=== PATIENT | female | born 1945 | race Caucasian/White ===

== ENCOUNTER → 2016-06-05 | Outpatient (CLI) | payer OTHER ==
[~2016-06-05] MED LIST: ASCO1CAP3 PO; CHOL1000 PO; FMR25 PO; GLUC10007 PO; HYDR-5688 PO; IBUP-1050 PO; OXYC1TAB3 PO; POTA10CA28 PO; POTA8CAP6 PO; SILV1CRE73 TOP; VITACAP26 PO
[2016-06-05 12:06] LABS: BASO % 0.6 %; BASO ABS # 0.04 K/uL (0-0.2); COMPLETE YES; EOS % 1.9 %; HEMATOCRIT 39.5 % (37-47); IG% 0.1 %; LYMPH % 28.2 %; LYMPH ABS # 1.96 K/uL (1.2-3.4); MEAN CELL VOLUME 89.2 fL (80-100); MEAN CORPUSCULAR HGB CONC 33.7 g/dl (32-36); MEAN PLATELET VOLUME 12.2 fL (7.4-10.4); MONO % 4.5 %; NEUT % 64.7 %; PLATELET COUNT 234 K/uL (130-400); RED BLOOD COUNT 4.43 M/uL (4.2-5.4); WHITE BLOOD COUNT 6.95 K/uL (4.8-10.8)
[2016-06-05 12:40] LABS: ALT/SGPT 18 U/L (12-78); BLOOD UREA NITROGEN 13 mg/dl (7-18); BUN/CREATININE RATIO 15.9 (10-20); CALCIUM 9.2 mg/dl (8.5-10.1); CARBON DIOXIDE 26 mmol/L (21-32); CHLORIDE 104 mmol/L (98-107); CREATININE 0.81 mg/dl (0.60-1.20); GLUCOSE 138 mg/dl (70-99); SODIUM 140 mmol/L (136-145)
[2016-06-05 12:43] LABS: ALB/GLOB RATIO 0.7 (0.9-2); ALKALINE PHOSPHATASE 138 U/L (45-117); AST/SGOT 16 U/L (15-37)
== END | disposition home or self-care (01) ==
LOC: C.LAB 09:52
PROVIDERS: ATTEND Internal Medicine Hematology & Oncology
DX: C50.919 Malignant neoplasm of unspecified site of unspecified female breast (principal)

== ENCOUNTER → 2016-08-17 | Outpatient (CLI) | payer OTHER ==
[~2016-08-17] MED LIST changes: -HYDR-5688 PO
--- NOTE | 2016-08-17 18:06 | DIAGNOSTIC IMAGING REPORT ---
LEFT SHOULDER 3 VIEWS HISTORY: M25.512 Pain in joint of left [id number] COMPARISON: Radiation therapy CT 06/22/2016. FINDINGS: There is a large permeative/destructive lesion at the proximal shaft of the left humerus. This measures 6.2 cm. This results in near-complete this obstruction of the medial cortex of the proximal humerus. No dislocation. This is similar to the prior study. Calcified granuloma within the left lung. IMPRESSION: No change in the large permeative/destructive lesion at the proximal shaft of left humerus. There is no acute fracture at this time. However, findings are consistent with an impending pathologic fracture. Electronically signed by: Camron Peraza M.D. 08/17/2016 6:04 PM Dictated Date/Time: 08/17/2016 6:02 PM
== END | disposition home or self-care (01) ==
LOC: C.RAD 17:36
PROVIDERS: ATTEND Internal Medicine
DX: M25.512 Pain in left shoulder (principal); M85.822 Other specified disorders of bone density and structure, left upper arm

== ENCOUNTER → 2016-08-23 | Outpatient (CLI) | payer OTHER ==
[~2016-08-23] MED LIST changes: +OPTIRAY 320 IV PRN
--- NOTE | 2016-08-23 13:44 | DIAGNOSTIC IMAGING REPORT ---
CT SCAN OF THE CHEST, ABDOMEN, AND PELVIS WITH IV CONTRAST CLINICAL HISTORY: Breast cancer. COMPARISON STUDY: No priors. TECHNIQUE: Following the IV administration of 118 of Optiray 320, CT scan of the chest, abdomen, and pelvis was performed from the thoracic inlet to the proximal femora. Images are reviewed in the axial, sagittal, and coronal planes. IV contrast was administered without complication. Automated dose control exposure was utilized. The Examination is degraded by streak artifact from the left arm which could not be elevated above the chest or abdomen. CT DOSE: 1582.14 mGy.cm FINDINGS: CHEST: Thyroid: Imaged portions of the thyroid gland are normal in size and attenuation. Thoracic aorta: There is mild atherosclerotic calcification of the thoracic aorta, which is normal in caliber and demonstrates standard 3-vessel arch anatomy. No dissection is seen. Pulmonary vasculature: The pulmonary trunk is normal in caliber. There are no filling defects identified in the central pulmonary vessels to indicate pulmonary was. Note that this examination was not protocoled for evaluation of the pulmonary arteries. Heart: The heart is normal in size and configuration, and without pericardial effusion. There are coronary artery calcifications. Lungs and pleural spaces: There is no airspace consolidation or pleural effusion. The trachea and central airways are clear. There are numerous calcified granulomas. There is a 10 mm linear nodular density at the left lung base seen on image #214. A 5 mm pleural-based nodule is seen along the left major fissure and adjacent to the descending thoracic aorta on image #108. Mediastinum: There is no mediastinal lymphadenopathy. Holly: Clear. Axillae: There is no axillary lymphadenopathy. Bony thorax: The skeletal structures are osteopenic. There is a large permeative/osteolytic lesion is seen in the left proximal humeral shaft on image #95 consistent with metastatic disease. A lytic lesion is seen within the left lamina and the base of the spinous process of T1 on image #22. Soft tissues: There are postoperative changes from bilateral mastectomy. There is dermal thickening with subcutaneous infiltration identified along the right ventral chest wall. ABDOMEN AND PELVIS: Liver: The contrast-enhanced liver is top normal in size measuring 18 cm in length. The liver demonstrates diffusely diminished attenuation consistent with hepatic steatosis. There are scattered calcified hepatic granulomas. There is mild central intrahepatic or ductal dilatation. The hepatic veins and portal veins are patent. Gallbladder: Surgically absent. Spleen: Normal in size and attenuation. There are numerous calcified splenic granulomas. Pancreas: Atrophic and grossly unremarkable. Adrenal glands: Unremarkable. Kidneys: The contrast enhanced kidneys demonstrate cortical atrophy and are without hydronephrosis. The kidneys enhance symmetrically. Scattered subcentimeter cortical hypodensities likely represent cysts but are too small for definitive characterization. Abdominal vasculature: The abdominal aorta is normal in course and caliber noting mild to moderate atherosclerotic calcification. Stomach and bowel: There is a tiny hiatal hernia. The stomach and duodenum otherwise normal in configuration. The small bowel and colon are normal in course and caliber. There is mild sigmoid diverticulosis without CT evidence of acute diverticulitis. The appendix is not identified and reported surgically absent. Peritoneum: There is no intraperitoneal free air or abdominal ascites. There is a small fat-containing umbilical hernia. Lymphadenopathy: None. Pelvic viscera: The bladder, uterus, and adnexa are normal as imaged. Findings suggest pelvic floor prolapse. Skeletal structures: The skeletal structures are osteopenic. A large lytic lesion is present within the medial right iliac wing adjacent to the sacroiliac joint on image #309. This lesion measures up to 2.6 cm. IMPRESSION: 1. There are postoperative changes from bilateral mastectomy. 2. Dermal thickening and inflammatory stranding within the right ventral chest wall is likely related to radiation treatment. Clinical correlation will be required. 3. There is evidence of multifocal osteolytic metastatic disease. Large lesions are seen within the left proximal humerus, the posterior element of T1, and the right ilium. Note that the left humeral lesion may place the patient at risk for pathologic fracture. 4. There are 2 indeterminant pulmonary nodules in the left lung measuring 10 mm and 5 mm. Metastatic disease is not excluded. Attention at follow-up is recommended. 5. There is no axillary or internal mammary lymphadenopathy. 6. There is no airspace consolidation or pleural effusion. 7. Hepatic steatosis. 8. Findings suggest pelvic floor prolapse. 9. Additional changes as above. Electronically signed by: Rolly Clinton M.D. 08/23/2016 1:43 PM Dictated Date/Time: 08/23/2016 1:29 PM
== END | disposition home or self-care (01) ==
LOC: C.NUCL 12:18
PROVIDERS: ATTEND Physician Assistant Medical
DX: C50.111 Malignant neoplasm of central portion of right female breast (principal); M79.602 Pain in left arm; M84.42 Pathological fracture, humerus; K76.0 Fatty (change of) liver, not elsewhere classified; R91.8 Other nonspecific abnormal finding of lung field; Z90.13 Acquired absence of bilateral breasts and nipples

== ENCOUNTER → 2016-08-23 | Outpatient (CLI) | payer OTHER ==
[~2016-08-23] MED LIST changes: -OPTIRAY 320 IV PRN
--- NOTE | 2016-08-23 15:48 | DIAGNOSTIC IMAGING REPORT ---
BONE SCAN WHOLE BODY CLINICAL HISTORY: Breast carcinoma COMPARISON STUDY: Chest CT dated 08/23/2016 FINDINGS: The patient was injected with 27 mCi of technetium 99m MDP. Three-hour delayed whole body images were acquired. There is intense focus of increased activity involving the proximal left humeral shaft. This corresponds to the lytic lesion described on the recent chest CT. There is a focus of increased activity involving the thoracic spine at the T1 level. This corresponds to the lytic lesion described on the recent chest CT. There is a focus of increased activity involving the left fifth rib posteriorly. This corresponds to a lytic lesion visualized on the recent CT scan. There is a focus of increased activity involving the right medial iliac bone. This corresponds to a destructive lesion as visualized on the recent CT scan of the abdomen and pelvis. There is a subtle focus of increased activity within the lumbar spine at the L1-2 level. This is felt to be degenerative.. IMPRESSION: Foci of abnormal increased activity involving the left proximal humerus, right medial iliac bone, left fifth rib, and T1 vertebra. The findings are consistent with metastatic disease. Electronically signed by: Anton Mclaughlin M.D. 08/23/2016 3:47 PM Dictated Date/Time: 08/23/2016 3:41 PM
== END | disposition home or self-care (01) ==
LOC: C.NUCL 12:21
PROVIDERS: ATTEND Orthopaedic Surgery
DX: M84.42 Pathological fracture, humerus (principal)

== ENCOUNTER → 2016-12-13 | Outpatient (CLI) | payer OTHER ==
[~2016-12-13] MED LIST changes: +OPTIRAY 320 IV PRN; -POTA8CAP6 PO; -SILV1CRE73 TOP; -VITACAP26 PO
--- NOTE | 2016-12-13 15:47 | DIAGNOSTIC IMAGING REPORT ---
ABD/PELVIS IV AND ORAL CONT CT DOSE: HISTORY: Breast carcinoma. Metastatic disease. BREAST CA TECHNIQUE: Multiaxial CT images of the abdomen and pelvis were performed following the use of intravenous and oral contrast. COMPARISON STUDY: 08/23/2016 FINDINGS: Lung bases are considered clear. Several calcific granulomas are present. Postoperative changes to the anterior chest wall bilaterally stable from the prior exam. Diffuse fatty infiltration of liver unchanged. Fatty replacement of the pancreas unaltered. The adrenal glands are within normal limits. Kidneys negative for hydronephrosis. Bowel pattern within the abdomen and pelvis is nonobstructive. Bladder is midline. Findings of diffuse bony metastatic change have not progressed. There is a slight degree of sclerosis of the right iliac region which may indicate partial healing. IMPRESSION: 1. Stable to slightly improved exam. 2. Bony metastatic change showing partial interval sclerosis and/or healing at the level of the right medial iliac bone 3. Fatty infiltration of liver stable The above report was generated using voice recognition software. It may contain grammatical, syntax or spelling errors. Electronically signed by: Elan Sanders M.D. 12/13/2016 3:45 PM Dictated Date/Time: 12/13/2016 3:40 PM
--- NOTE | 2016-12-13 15:47 | DIAGNOSTIC IMAGING REPORT ---
CT OF THE CHEST WITH IV CONTRAST CLINICAL HISTORY: BREAST CA COMPARISON STUDY: 08/23/2016 TECHNIQUE: Following the IV administration of 93 mL of Optiray-320, CT of the thorax was performed from the thoracic inlet to the lung bases. Images are reviewed in the axial, sagittal, and coronal planes. IV contrast was administered without complication. CT DOSE: 1894.58 mGy.cm FINDINGS: Thyroid: There is a 4 mm left lobe thyroid nodule Thoracic aorta: The thoracic aorta is normal in course and caliber, noting standard 3-vessel arch anatomy. No aneurysm or dissection is seen. Pulmonary vasculature: The pulmonary trunk is normal in caliber. There are no central filling defects identified to suggest pulmonary embolus. Note that this examination was not protocoled for the evaluation of pulmonary emboli. HEART: There are coronary artery calcifications present Lungs and pleural spaces: There are no pleural effusions. There is no focal pulmonary consolidation. There multiple left lung calcified granulomas. There is a stable 3 mm right upper lobe perifissural nodule. There is a stable 5 mm pulmonary nodule within the superior segment left lower lobe adjacent to the descending thoracic aorta. There is an 8 mm elliptical left lower lobe pulmonary nodule which appears slightly smaller than on the prior study. Mediastinum: There is no evidence of pathologic adenopathy. Holly: There are calcified left hilar lymph nodes. There is no pathologic adenopathy. Axilla: There is no evidence of pathologic adenopathy Upper abdomen: There is severe hepatic steatosis. Skeletal structures: There are postsurgical changes involving the left humerus. Destructive changes involve the proximal left humeral metaphysis. There is a posterior T1 destructive lesion, similar to the prior study. There are postsurgical changes of bilateral mastectomies. Right-sided skin thickening and infiltration of the subcutaneous fat is likely secondary to prior radiation therapy. IMPRESSION: 1. No evidence of pathologic adenopathy 2. No new or enlarging pulmonary nodules 3. Stable skeletal metastasis Electronically signed by: Anton Mclaughlin M.D. 12/13/2016 3:45 PM Dictated Date/Time: 12/13/2016 3:38 PM
--- NOTE | 2016-12-13 18:16 | DIAGNOSTIC IMAGING REPORT ---
BONE SCAN WHOLE BODY HISTORY: Breast carcinoma BREAST CA RADIOTRACER: 27 mCi Tc-99m MDP STUDY/IMAGES: Planar anterior and posterior whole body imaging was performed 3 hours following the intravenous administration of radiotracer. COMPARISON: 08/23/2016 FINDINGS: Increased intensity of activity of the left humerus. Increase in activity right iliac bone. Small focus of increased activity adjacent to the lesser trochanter right hip. Small stable focus of increased activity mid sternum. Increased activity of the low cervical region. Stable focus of increased activity left fifth rib. Potential new small focus of increased activity left 10th rib midaxillary line. Mild stable degenerative activity of the knees and ankles as well as right shoulder. IMPRESSION: 1. Increased activity at multiple sites with new foci of increased activity lesser trochanter right hip as well as a lower left rib 2. Although this may represent moderately progressive metastatic disease, this increased activity may also be simply represent a rebound post therapeutic effect. 3. The possibility of a rebound post therapeutic effect is perhaps more likely given the stable to improved CT findings. The above report was generated using voice recognition software. It may contain grammatical, syntax or spelling errors. Electronically signed by: Elan Sanders M.D. 12/13/2016 6:15 PM Dictated Date/Time: 12/13/2016 6:08 PM
== END | disposition home or self-care (01) ==
LOC: C.CTS 12:21
PROVIDERS: ATTEND Internal Medicine Hematology & Oncology
DX: C50.311 Malignant neoplasm of lower-inner quadrant of right female breast (principal); K76.0 Fatty (change of) liver, not elsewhere classified; C79.51 Secondary malignant neoplasm of bone

== ENCOUNTER → 2017-04-04 | Outpatient (CLI) | payer OTHER ==
--- NOTE | 2017-04-04 12:19 | DIAGNOSTIC IMAGING REPORT ---
(CHEST) THORAX WITH CLINICAL HISTORY: 71 years-old Female presenting with BREAST CA. TECHNIQUE: Multidetector CT imaging of the chest was performed after the administration of intravenous contrast. IV contrast: 95 mL of Optiray 320. A dose lowering technique was used consistent with the principles of ALARA (as low as reasonably achievable). COMPARISON: 12/13/2016. CT DOSE (mGy.cm): The estimated cumulative dose is 1828.99 mGy.cm. FINDINGS: Funding Coordinator topogram: Left humeral intramedullary nail. On soft tissue windows, post surgical changes of bilateral mastectomies. Skin thickening along the right breast may represent posttreatment change. No axillary, supraclavicular, hilar, or mediastinal lymphadenopathy. Atherosclerosis of the aorta. Top normal heart size. Coronary artery calcification. No pericardial or pleural effusion. Suggestion of hepatic steatosis. Prominence of the extrahepatic bile duct, likely a reservoir effect in the post cholecystectomy state. Splenic calcification suggest prior granulomatous infection. On lung windows, subpleural bandlike opacity and reticulation along the anterior right upper and middle lobes new from prior exam, likely postradiation change. This also affects the right apex. Multiple calcified granulomas noted. Mosaic attenuation could suggest small airways disease. Minimal dependent changes likely atelectasis. No focal nodule or other infiltrate. Airways patent. On bone windows, intramedullary nail fixation of the left humerus. Previous seen noted destructive osseous lesion in the T1 vertebral body again noted, and which now appears more sclerotic. Osteopenia. Degenerative changes of the spine. IMPRESSION: 1. Postsurgical and posttreatment changes of bilateral mastectomies and post radiation change. Interval development of radiation pneumonitis involving the anterior right lung. 2. No lymphadenopathy or pulmonary nodules to suggest intrathoracic metastatic disease. 3. Persistent metastatic lesion in the T1 vertebral body, which is now more sclerotic. This could indicate posttreatment change. Electronically signed by: Felton Acevedo M.D. 04/04/2017 12:17 PM Dictated Date/Time: 04/04/2017 12:04 PM
--- NOTE | 2017-04-04 12:21 | DIAGNOSTIC IMAGING REPORT ---
ABDOMEN AND PELVIS CT WITH IV AND ORAL CONTRAST HISTORY: Follow-up study in a patient with metastatic breast cancer METASTATIC BREAST CANCER TECHNIQUE: Multiaxial CT images of the abdomen and pelvis were performed following the use of intravenous and oral contrast. A dose lowering technique was utilized adhering to the principles of ALARA. COMPARISON STUDY: CT abdomen and pelvis and bone scan 12/13/2016. FINDINGS: Postoperative changes along the lower right chest wall are noted in addition to subsegmental linear opacities of the right lung base suggesting post therapeutic scarring. There is scattered calcified granulomas of the left lung base. Subpleural groundglass opacities and nodularity of the free segment lingula appears stable suggesting chronic changes. There is no pneumoperitoneum identified. Imaged inferior cardiac chambers are unremarkable. Coronary arterial disease noted. Fatty infiltration of the liver without focal hepatic mass lesion identified. No intrahepatic biliary ductal dilation. Prior cholecystectomy. Mild dilation of the common bile duct at 12 mm is likely secondary to postcholecystectomy state. This appears unchanged. Scattered granulomas of the spleen are noted. Moderate atrophy of the pancreas is noted. Bilateral adrenal glands are unremarkable. 5 mm low attenuating lesion involves the posterior interpolar right kidney, too small to characterize however suggesting a cyst. There is no renal calculi or hydronephrosis. Ureters, urinary bladder, uterus and adnexa are unremarkable. There is mild to moderate mixed plaquing of the abdominal aorta without aneurysm identified. No bulky retroperitoneal adenopathy to suggest metastasis. No bowel obstruction. Scattered noninflamed colonic diverticula without CT evidence of acute diverticulitis. The appendix appears surgically absent. Patient obesity is noted. Small fat filled periumbilical hernia is noted, diastases 11 mm. There is progressive sclerosis surrounding the lytic right iliac metastasis as seen on image 276 of series 7. No new or progressive metastasis identified. Severe intervertebral disc space narrowing at L1-L2 and also at several levels within the thoracic spine. Sclerosis of the bilateral 12th ribs suggest remote fracture deformities. IMPRESSION: 1. No acute intra-abdominal or intrapelvic abnormality identified. No evidence of progressive metastatic disease or pathologic adenopathy. 2. Progressive healing sclerosis involves the large right iliac wing metastasis. No new or enlarging bony metastatic foci identified. 3. Fatty infiltration of the liver. 4. Additional findings as above. Electronically signed by: Frantz Daniel M.D. 04/04/2017 12:20 PM Dictated Date/Time: 04/04/2017 12:07 PM
--- NOTE | 2017-04-04 14:34 | DIAGNOSTIC IMAGING REPORT ---
BONE SCAN WHOLE BODY HISTORY: 71 years-old Female BREAST CA follow-up study in a patient with metastatic breast cancer COMPARISON: Bone scan 12/13/2016, chest and abdomen CT 04/04/2017 TECHNIQUE: Anterior and posterior whole-body planar scintigraphic bone scan images were obtained utilizing 26.8 mCi technetium 99 MDP FINDINGS: Moderate radiotracer uptake noted about the T1 vertebral body, left fifth and 10th ribs, left proximal humerus, right lesser trochanter and right iliac wing, all of which demonstrate slightly decreased radiotracer accumulation from comparison study. Decreased activity about the mid sternum. No new suspicious foci identified. Mildly increased soft tissue uptake about the right greater than left breast region suggest postsurgical changes. Degenerative related uptake noted about the spine, shoulders, knees, ankles and feet as well as within the bilateral wrists distribution. Physiologic radiotracer uptake noted about the kidneys, soft tissues and urinary bladder. IMPRESSION: 1. Mildly decreased radiotracer uptake about multiple metastatic foci as above without new metastatic foci identified. 2. Degenerative related uptake is again noted about the spine and appendicular skeletal system. The above report was generated using voice recognition software. It may contain grammatical, syntax or spelling errors. Electronically signed by: Frantz Daniel M.D. 04/04/2017 2:33 PM Dictated Date/Time: 04/04/2017 2:26 PM
== END | disposition home or self-care (01) ==
LOC: C.CTS 10:41
PROVIDERS: ATTEND Internal Medicine Hematology & Oncology
DX: C50.311 Malignant neoplasm of lower-inner quadrant of right female breast (principal); K76.0 Fatty (change of) liver, not elsewhere classified

== ENCOUNTER → 2017-07-28 | Outpatient (CLI) | payer OTHER ==
--- NOTE | 2017-07-28 14:32 | DIAGNOSTIC IMAGING REPORT ---
CT OF THE ABDOMEN AND PELVIS WITH CONTRAST CLINICAL HISTORY: Breast cancer. COMPARISON STUDY: CT of the abdomen and pelvis and the body bone scan April 04, 2017. TECHNIQUE: Following IV administration of 93 mL of Optiray-320, axial images of the abdomen and pelvis were obtained from the lung bases to the proximal femurs. Images were reviewed in the axial, sagittal, and coronal planes. IV contrast was administered without complication. A dose lowering technique was utilized adhering to the principles of ALARA. Oral contrast was administered. CT DOSE: 1909.66 mGy.cm FINDINGS: The chest CT will be reported separately. Fatty infiltration of the liver is noted. Biliary ductal dilatation is unchanged and likely related to prior cholecystectomy. There are calcified granulomas within the spleen. The adrenal glands, kidneys and pancreas are unremarkable with exception of a suspected cyst within lower pole the right kidney. There is no hydronephrosis. There is no evidence for a bowel obstruction. Layering hyperdense material within the bladder likely reflects excreted contrast. There is colonic diverticulosis without evidence for acute diverticulitis. No abdominal or pelvic lymphadenopathy is present. Multiple skeletal lesions are similar in appearance to exam of April 04, 2017, the largest of which is a 6.4 cm lytic lesion with associated sclerosis within the posterior medial aspect of the right iliac bone. A 1.5 cm lesion within the lesser trochanter the right femur is unchanged. No new skeletal lesions are identified. IMPRESSION: 1. No evidence of progressive metastatic disease within the abdomen or pelvis. 2. No change in appearance of multiple skeletal metastases since exam of April 04, 2017. No new lesions identified. 3. Fatty liver. Electronically signed by: Adam Fiore M.D. 07/28/2017 2:31 PM Dictated Date/Time: 07/28/2017 2:21 PM
--- NOTE | 2017-07-28 14:35 | DIAGNOSTIC IMAGING REPORT ---
CHEST CT WITH CONTRAST HISTORY: Follow-up study in a patient with history of metastatic breast cancer. Subsequent treatment strategy. History of prior bilateral mastectomies and prior radiation therapy. X TECHNIQUE: Multiaxial CT images of the chest were performed following the intravenous administration of contrast. A dose lowering technique was utilized adhering to the principles of ALARA. COMPARISON: CT abdomen and pelvis of same day, bone scan 04/04/2017, CT chest 04/04/2017 FINDINGS: No dominant thyroid nodule identified. No pathologic adenopathy of the chest identified. Heart is normal in size without pericardial effusion. Coronary arterial disease. The thoracic aorta is normal in course and caliber without aneurysm or dissection. The opacified pulmonary arterial tree is unremarkable. No pneumothorax or pleural effusion. Calcified bilateral granulomas. No suspicious pulmonary nodules or masses are identified. The central airways appear patent. Subpleural reticular and groundglass opacities are noted bilaterally, specifically within the apical segment right upper lobe, anterior and lateral portions of the right lung and also within the lingula. Ground glass opacities within the lingula and lateral basal segment left lower lobe have slightly worsened. Fatty infiltration of the liver. Calcific granulomas of the spleen. No acute abnormality of the imaged upper abdomen. Prior bilateral mastectomy. Note is of residual or recurrent disease. Skin thickening about the right chest wall suggests post treatment changes. Orthopedic hardware of the left humerus with remote fracture deformity. Unchanged sclerotic bone lesion of the T1 vertebral body with chronic pathologic compression fracture with 3 mm retropulsion. This mildly flattens the ventral thecal sac without significant central canal narrowing. Sclerotic metastasis also involves the posterior elements at this level. No new suspicious lytic or blastic bony lesions identified. IMPRESSION: 1. Prior bilateral mastectomy with areas of right greater than left bilateral radiation fibrosis within the lungs. Mildly progressive groundglass opacities are noted within the inferior segment lingula also likely reflecting posttreatment related changes with a superimposed mild pneumonitis also the differential. No suspicious pulmonary nodules or masses identified. 2. No adenopathy or evidence of new metastatic disease. 3. Unchanged sclerotic metastasis of the T1 vertebral body with remote pathologic compression fracture and 3 mm retropulsion. 4. Prior granulomatous disease. 5. Hepatic steatosis. Electronically signed by: Frantz Daniel M.D. 07/28/2017 2:33 PM Dictated Date/Time: 07/28/2017 2:21 PM
--- NOTE | 2017-07-28 17:02 | DIAGNOSTIC IMAGING REPORT ---
BONE SCAN WHOLE BODY CLINICAL HISTORY: 71 years-old Female presenting with BREAST CA. TECHNIQUE: Planar anterior and posterior whole body imaging was performed 3 hours following the intravenous administration of 26.50 mCi Tc-99m MDP. COMPARISON: 04/04/[address] performed earlier the same day. FINDINGS: Focal persistent radiotracer activity in the T1 vertebral body as well as the posterior left fifth rib. Decreased prominence of focal radiotracer uptake in the lateral left 10th rib. Persistent radiotracer uptake in the proximal left humeral metadiaphysis. Persistent reticular uptake in the lesser trochanter of the right femur. Persistent radiotracer uptake in the right ilium subjacent to the right sacroiliac joint. Ill-defined activity in the manubrium similar to prior exam. No new suspicious foci of radiotracer uptake. Ill-defined activity in the right greater than left breast unchanged from prior. Mild radiotracer activity at the medial compartment of the left knee, likely degenerative. IMPRESSION: 1. Persistent focal radiotracer uptake consistent with metastatic disease in a identical distribution as on prior exam. No new foci of metastatic disease. Electronically signed by: Felton Acevedo M.D. 07/28/2017 5:01 PM Dictated Date/Time: 07/28/2017 4:53 PM
== END | disposition home or self-care (01) ==
LOC: C.CTS 12:54
PROVIDERS: ATTEND Internal Medicine Hematology & Oncology
DX: C50.311 Malignant neoplasm of lower-inner quadrant of right female breast (principal); K76.0 Fatty (change of) liver, not elsewhere classified; C79.51 Secondary malignant neoplasm of bone; Z90.13 Acquired absence of bilateral breasts and nipples; J70.1 Chronic and other pulmonary manifestations due to radiation; L92.9 Granulomatous disorder of the skin and subcutaneous tissue, unspecified